=== PATIENT | female | born 1960 | race Caucasian/White ===

== ENCOUNTER → 2018-08-13 | Outpatient (CLI) | payer OTHER ==
[~2018-08-13] VITALS: Ht 170.2 cm; Wt 56.2 kg
[~2018-08-13] MED LIST: AMLODIPINE-BEN1 EAC5 PO; ASPIR 8181 MG PO; ATORVASTATIN CA40 MG PO; BUPROPION XL150 MG PO; CARDURA1 MG PO; CHLORTHALIDONE50 MG PO; CLONIDINE0.1 PO; COREG25 MG PO; HYDRALAZINE HC100 MG PO; HYDROCHLOROTHIA25 M2 PO; MEDROL4 M1 PO; NIFEDIPINE ER60 M1 PO; NORFLEX100 MG PO; PEPCID20 MG PO; PLAVIX 75 MG TA75 M1 PO; VITAFOL-OB+DHA1 EACH PO; VITAMIN B-1100 M1 PO
[2018-08-13 13:20] LABS: ABSOLUTE BASOPHILS 0.1 thou/uL (0.0-0.2); ABSOLUTE EOSINOPHILS 0.3 thou/uL (0.0-0.7); ABSOLUTE LYMPHOCYTES 1.3 thou/uL (0.8-5.3); ABSOLUTE MONOCYTES 0.9 thou/uL (0.0-1.2); ABSOLUTE NEUTROPHILS 5.7 thou/uL (1.6-8.1); BASOPHILS 0.9 %; EOSINOPHILS 3.5 %; HEMATOCRIT 35.4 % (37.0-47.0); LYMPHOCYTES 15.7 %; MCH 32.3 pg (26.0-34.0); MCHC 33.9 g/dL (28.0-37.0); MCV 95.2 fL (80.0-100.0); MONOCYTES 10.4 %; MPV 6.7 fl. (7.2-11.1); NUCLEATED RBCS 0 /100WBC; PLATELET COUNT* 363 thou/uL (150-400); POLYS 69.5 %; RBC 3.72 mil/uL (4.20-5.00); RDW-CV 13.2 % (10.5-14.5); WBC 8.2 thou/uL (4.0-11.0)
[2018-08-13 13:25] LABS: CALCIUM 9.5 mg/dL (8.5-10.1); CREATININE 1.1 mg/dL (0.6-1.3)
[2018-08-13 13:30] LABS: POTASSIUM 2.9 mmol/L (3.5-5.1)
--- NOTE | 2018-08-13 15:33 | EKG ---
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: : 1960 Requested By: Marcos Goldstein Order Number: [id number] MD: Salinas Fulton Measurements Intervals [place] Rate: 68 P: 72 [place]: 133 QRS: 71 QRSD: 106 T: 90 QT: 466 QTc: 496 Interpretive Statements Sinus rhythm Consider left atrial enlargement RSR' in V1 or V2, probably normal variant Minimal ST depression, lateral leads Borderline prolonged QT interval No previous ECG available for comparison Electronically Signed On 08-13-2018 15:33:12 CDT by Salinas Fulton [email or web address] <ELECTRONICALLY SIGNED> By: Salinas Fulton MD, FAC 08/13/18 1533 1311 1311 Salinas Fulton MD, [facility] /EPI
== END ==
LOC: M.PRE 05:34 → EDSTATUS 09:21 → M.PRE 11:33 → M.LAB 12:53 → M.TBA 12:53 → M.PRE 13:59
PROVIDERS: Surgery
DX: I65.22 Occlusion and stenosis of left carotid artery (principal); I51.7 Cardiomegaly; R91.1 Solitary pulmonary nodule

== ENCOUNTER 2018-08-28 08:23 | Inpatient (IN) | payer OTHER ==
[~2018-08-28] VITALS: Ht 170.2 cm; Wt 55.8 kg
[2018-08-28 12:49] VITALS: BP 149/70
--- NOTE | 2018-08-28 17:10 | NUR ---
PT ARRIVED FROM CAROTID PROCEDURE AROUND 1630. ASSESSMENT CHARTED. AFEBRILE. LEFT SIDE CAROTID. SITE IS INTACT. PT ON CARDENE GTT. WILL CONTINUE TO MONITOR.
[2018-08-28 19:00] VITALS: BP 120/43; BP 120/53
[2018-08-28 20:00] VITALS: BP 124/58
[2018-08-28 21:00] VITALS: BP 118/54
[2018-08-28 22:00] VITALS: BP 107/50
[2018-08-28 23:00] VITALS: BP 109/55
--- NOTE | 2018-08-28 23:06 | NUR ---
RECIEVED REPORT AND ASSUMED CARE OF PT AT 1900. PT POST OP LEFT CAROTID ENDARECTOMY. INCISION SITE WELL APROXIMATED, DERMABOND INTACT. NO BLEEDING BRUISING OR HEMATOMA NOTED. ICE PACK MAINTAINED TO SITE. HEAD OF BED MAINTAINED AT 30 DEGREES. PT GIVEN PRN VICODIN AT HS FOR REPORT OF ACHING AND SORENESS AT INCISION SITE. PT ATTEMPTED TO USE BEDPAN PRIOR TO SHIFT CHANGE THEN AGAIN X2 DEARLY IN SHIFT. PT UNABLE TO VOID AND REPORTED FEELING STRONG SENSATION TO URINATE WELL BLADDER PRESSURE. BLADDER SCAN DONE, RESULT SHOWED > 1000. TOTAL 2000 OUT PUT 45 MINUTES AFTER ZIMMERMAN INSERTION. PT VOICED IMMEDIATE RELIEF 10 TO 15 MINUTES AFTER INSERTION. CATHETER PLACED BY ANDREW SARMIENTO RN. FAMILY MEMBERS CAME INTERMITTENTLY TO SEE PT FOR BRIEF TIME PERIODS. PT RESTING WITH OU CLOSED. CALL LIGHT IN REACH, PT DEMONSTRATES PROPER USE.
[2018-08-29] VITALS (20 sets, daily range): BP systolic 102–195; BP diastolic 38–86
--- NOTE | 2018-08-29 00:54 | NUR ---
CARDENE DRIP INFUSING AT START OF SHIFT. CARDENE DISCONTINUED AT 2100 AFTER HS MEDS GIVEN. BLOOD PRESSURE AND HEART RATE WITHIN DEFINED LIMITS.
--- NOTE | 2018-08-29 01:53 | NUR ---
RIGHT RADIAL ARTERIAL LINE DISCONTINUED AT 0115. DIREST PRESSURE HELD. HEMOSTASIS ACHIEVED AT 0145. PT REPORTS DRY MOUTH, DENIES PAIN AT INCISION SITE. PT TOLERATING PO FLUIDS WITHOUT DIFFICULTY. PT ATE APPLE SAUCE TO TAKE PO POTASSIUM AT MIDNIGHT. NO NAUSEA OR VOMITING. PT ON ROOM AIR WITH O2 SAT >94%.
[2018-08-29 03:47] LABS: CALCIUM 8.3 mg/dL (8.5-10.1); CREATININE 0.9 mg/dL (0.6-1.3)
[2018-08-29 03:48] LABS: POTASSIUM 4.3 mmol/L (3.5-5.1)
--- NOTE | 2018-08-29 06:21 | NUR ---
pt progressing toward goals. blood pressure and heart rate within defined limits. cardene drip off since 2100. pt taking po food and fluids, no nausea or vomiting. pain controlled with pral meds. incision site well aproximated, no bleeding, slight bruising and slightly swollen. blake catheter discontinued at 0615.
--- NOTE | 2018-08-29 11:00 | NUR ---
SPOKE WITH PT. SHE LIVES WITH HER . HE CAN HELP HER AT HOME WHEN SHE GOES HOME. SHE SAID SHE IS FEELING ALITTLE DIZZY THIS AM. MAY POSSIBLY GO HOME LATER TODAY IF DIZZINESS RESOLVES AND IS ABLE TO VOID. SHE DOES NOT THINK SHE WILL HAVE ANY DISCHARGE NEEDS.
--- NOTE | 2018-08-29 14:32 | NUR ---
PT IS A/O X'S 4. PT TOLERATING HEART HEALTHY DIET. VSS IN AM. PT AMBULATED IN UNIT. PT SAT ON COMMODE ATTEMPTED TO VOID. SPOUSE AT BEDSIDE. IN AFTERNOON PT HAD SYSTOLIC BP OF 193. AT THIS SAME TIME PT CALLED NURSE INTO ROOM PT IN TEARS IN PAIN 10/10 IN LATERAL LEFT SIDE OF NECK AT LOCATION OF PROCEDURE. PT FACE IS FLUSHED. PT C/O OF FEELING WEAK AND LIGHTHEADED. PT HAD A HEADACHE FOR <[address] GOTTLIEB ASKED FOR IV HYDRALAZINE, RECEIVED ORDER TO GIVE PO HYDRALAZINE EARLY. PER DR GOTTLIEB RECEIVED ORDER TO CALL VASCULAR AND ASK IF WOULD LIKE HEAD CT. VASCULAR CALLED. PER VASCULAR PT NEEDS TO STAY NIGHT TO BE MONITORED. IF PT HAS A CONTINUOUS HEADACHE CALL VASCULAR AND HEAD CT MAY BE ORDERED. VASCULAR WOULD LIKE BP <150. WILL CONTINUE TO MONITOR.
--- NOTE | 2018-08-29 15:58 | NUR ---
PT HAS SAT ON BSC 3-4 TIMES THIS SHIFT. UNABLE TO VOID. PT AMBULATED. WATER TURNED ON IN ROOM. PT STILL UNABLE TO VOID. BLADDER SCANNED SHOWED 221 AROUND 10AM. PT RE-SCANNED AROUND 1400 AND BLADDER SHOWED 343 ML. PT DRINKING FLUIDS. AT 1550 PT SAT ON BSC AND VOIDED 925. PT REPORTS FEELING RELEIVED PRESSURE IN BLADDER. WILL CONTINUE TO MONITOR.
--- NOTE | 2018-08-29 19:10 | NUR ---
RECIEVED REPORT AND ASSUMED CARE OF PT. PT UP TO COMMODE WITH STANDBY ASSIST. PT HAD URINE RETENTION DURING DAY SHIFT. VOIDING WITHOUT DIFFICULTY AT THIS TIME. PT REPORTS SORENESS AT INCISION SITE, DENIES HEADACHE, DIZZYNESS OR BLURRED VISION. PT INSTRUCTED TO REPORT PAIN OR SYMPTOMS DESCRIBED IMMEDIATELY. USBAND AT BEDSIDE ASSISTING WITH CARE.
[2018-08-30] VITALS (10 sets, daily range): BP systolic 104–155; BP diastolic 34–69
[2018-08-30 02:33] LABS: ABSOLUTE BASOPHILS 0.1 thou/uL (0.0-0.2); ABSOLUTE EOSINOPHILS 0.2 thou/uL (0.0-0.7); ABSOLUTE LYMPHOCYTES 1.2 thou/uL (0.8-5.3); ABSOLUTE NEUTROPHILS 5.6 thou/uL (1.6-8.1); EOSINOPHILS 2.6 %; HEMATOCRIT 31.1 % (37.0-47.0); HEMOGLOBIN 10.2 gm/dL (12.0-15.0); LYMPHOCYTES 15.1 %; MCH 32.2 pg (26.0-34.0); MCHC 32.8 g/dL (28.0-37.0); MCV 98.2 fL (80.0-100.0); MONOCYTES 12.2 %; MPV 6.9 fl. (7.2-11.1); NUCLEATED RBCS 0 /100WBC; PLATELET COUNT* 283 thou/uL (150-400); POLYS 69.1 %; RBC 3.17 mil/uL (4.20-5.00); RDW-CV 13.3 % (10.5-14.5); WBC 8.1 thou/uL (4.0-11.0)
[2018-08-30 02:49] LABS: ALBUMIN 3.3 g/dL (3.4-5.0); CALCIUM 8.6 mg/dL (8.5-10.1); CREATININE 1.1 mg/dL (0.6-1.3); POTASSIUM 3.6 mmol/L (3.5-5.1); TOTAL BILIRUBIN 0.3 mg/dL (<0.1-1.0)
--- NOTE | 2018-08-30 16:55 | NUR ---
PT ORDERS RECEIVED AND ATTEMPTED EVAL ON 08/29/18. PT EVAL HELD BY NURSING ON 08/29/18. PT DISCHARGED PRIOR TO PT ABLE TO COMPLETE EVALUATION.
--- NOTE | 2018-09-03 08:09 | PATH ---
[address] [address] PATHOLOGY RPT PROCEDURE Name: TRUE CASAS I Room: [address] IN .R.#: [id number] Admission: 08/28/18 Date of : 56 Discharge: 08/30/18 Report #: [id number] Path Case #: [id number] [facility] Accession Number: [id number] . 01 Material submitted: . LEFT CAROTID PLAQUE . 01 Clinical history: . Left carotid stenosis . 02 Diagnosis: Left carotid plaque: - Calcified atheromatous plaque. (MAP:[facility]; 08/30/2018) QMS/08/30/2018 . 02 Electronically signed: . Ze Skaggs MD, Pathologist NPI- [id number] . 01 Gross description: . Received in formalin labeled "True Casas, left carotid plaque," is a roughly tubular segment of orange-porter rubbery tissue measuring 3.3 x 1.0 x 1.0 cm in greatest dimensions. Sectioning reveals partially calcified cut surfaces and deposits of granular, brown-black material. The specimen is submitted representatively in cassette A1, following decalcification. ([facility]; 08/29/2018) XDC/XDC . 02 Pathologist provided ICD-10: I65.22 . 02 CPT . 903442, 307814 Specimen Comment: A courtesy copy of this report has been sent to Specimen Comment: [phone], , . Specimen Comment: Report sent to ,DR RICE / DR SALEH Specimen Comment: A duplicate report has been generated due to demographic updates. Performed at: 01 [facility] [address], [place], [place] [id number] MD Thiago Erazo MD Phone: [phone] Performed at: 02 [facility] [address], [place], [place] [address] MD Nigel Osorio MD Phone: [phone]
--- NOTE | 2018-09-03 12:01 | OP ---
[facility] [address] [place] [address] OPERATIVE REPORT Name: TRUE CASAS I Room: [address] IN .R.#: [id number] Admission: 08/28/18 Attend Phys: Kathy Skelton Discharge: 08/30/18 Date of : 56 Report #: [id number] THIS REPORT FOR: //name// CC: Marcos Quinones DATE OF SERVICE: 08/28/2018 PREOPERATIVE DIAGNOSIS: Asymptomatic high-grade left carotid artery stenosis. POSTOPERATIVE DIAGNOSIS: Asymptomatic high-grade left carotid artery stenosis. OPERATION: 1. Left carotid endarterectomy with bovine pericardial patch angioplasty. 2. Completion intraoperative duplex. SURGEON: Marcos Goldstein DO HOUSE SERVANT: , ORT. ANESTHESIA: General. ESTIMATED BLOOD LOSS: 250 mL. FLUIDS: A liter of crystalloid. URINE OUTPUT: None. SPECIMENS: Left carotid plaque. IMPLANTS: A 0.8 x 8 bovine pericardial patch to left carotid artery. FINDINGS: She had a heavily calcified, approximately 90% stenosis of the left carotid artery. This endarterectomized well. Completion intraoperative duplex demonstrated no intraluminal defects, good flow through the external and continuous diastolic flow through the internal carotid artery. CLINICAL HISTORY: The patient is a 58-year-old woman with a known carotid artery disease, high-grade left carotid stenosis. She is brought in today for elective endarterectomy for stroke risk reduction. DETAILS OF PROCEDURE: After informed consent was obtained, the patient was taken to the operating room and placed on the OR bed in supine position. She was administered general anesthesia by the anesthesia team. Left neck was prepped and draped in the usual sterile fashion. Full timeout was performed [place] [id number] OPERATIVE REPORT Name: TRUE CASAS I Room: [address] IN [facility].#: [id number] Admission: 08/28/18 Attend Phys: Kathy Skelton Discharge: 08/30/18 Date of : 56 Report #: [id number] identifying correct patient and procedure. Next, a longitudinal incision made along the anterior border of the left sternocleidomastoid. Dissection was carried down through skin and subcutaneous tissues creating platysma flaps. The facial vein was identified, was ligated between 2-0 silk ties and divided. The carotid sheath was entered. The common carotid artery was circumferentially mobilized and controlled with umbilical tape and Rumel tourniquet. I then dissected out the external carotid and superior thyroid arteries and controlled with Silastic vessel loops in Hilton fashion. I then dissected out the distal internal carotid artery and controlled with Silastic vessel loop. Administered 7000 units of intravenous heparin and this allowed to circulate for 3 minutes and then sequentially clamped the internal followed by the external common carotid arteries. We then made a longitudinal arteriotomy, extending with Hilton scissors on the normal common and internal carotid artery. I placed a 10-[place] shunt in standard fashion. Doppler interrogation confirmed flow through the shunt. I then performed a standard endarterectomy with eversion endarterectomy of the external carotid artery, freed the artery of all intimal debris. Flushed with heparinized saline. I then performed a patch angioplasty with bovine pericardial patch and running 6-0 Prolene suture. Prior to completion of the suture line, the shunt was removed and the carotid was reclamped, allowed to fore and backbleed and flushed. I completed the suture line, restored flow first up the external carotid artery and after several heartbeats to the internal carotid artery. I then performed completion intraoperative duplex, which again demonstrated no intraluminal defects, good flow through the external and continuous diastolic flow through the internal carotid artery. At this point, I then partially reversed the heparin with 50 mg protamine, irrigated the wound once hemostasis was ensured with antibiotic solution and closed the wounds in layers with 2-0 and 3-0 Vicryl, 4-0 Monocryl on the skin. Local anesthetic was infiltrated. Dermabond was applied. All sponge, sharp and instrument counts reported as correct x 2. She was extubated in the operating room, neurologically intact in upper and lower extremities appropriately to command. She was then transferred to recovery room in stable condition. <ELECTRONICALLY SIGNED> By: Marcos Goldstein DO 09/03/18 1201 1517 [id number] Goldstein DO /nt
== END 2018-08-30 10:15 | disposition home or self-care (01) | DRG 39 ==
LOC: M.PRE 08:23 → M.TBA 12:10 → M.ICU 12:10 → M.PRE 12:47 → M.ICU 16:35
PROVIDERS: Internal Medicine; ADMIT Internal Medicine
PROC: 03UL0KZ Supplement Left Internal Carotid Artery with Nonautologous Tissue Substitute, Open Approach (ICD-10-PCS; principal; 2018-08-28)
PROC: 03CL0ZZ Extirpation of Matter from Left Internal Carotid Artery, Open Approach (ICD-10-PCS; principal; 2018-08-28)
DX: I65.22 Occlusion and stenosis of left carotid artery (principal); K21.9 Gastro-esophageal reflux disease without esophagitis; E78.5 Hyperlipidemia, unspecified; I10 Essential (primary) hypertension; F17.210 Nicotine dependence, cigarettes, uncomplicated; E86.0 Dehydration; R33.9 Retention of urine, unspecified; Z79.82 Long term (current) use of aspirin; Z79.899 Other long term (current) drug therapy; Z88.8 Allergy status to other drugs, medicaments and biological substances; Z28.21 Immunization not carried out because of patient refusal

== ENCOUNTER → 2018-09-11 | Outpatient (CLI) | payer OTHER ==
[2018-09-11 09:25] LABS: CREATININE 1.1 mg/dL (0.6-1.3)
== END ==
LOC: M.LAB 09-02 10:00 → M.CT 09-02 10:00 → M.LAB 09:00 → M.CT 11:00
PROVIDERS: Nurse Practitioner
DX: I70.1 Atherosclerosis of renal artery (principal); J43.2 Centrilobular emphysema; R93.89 Abnormal findings on diagnostic imaging of other specified body structures; I70.213 Atherosclerosis of native arteries of extremities with intermittent claudication, bilateral legs

== ENCOUNTER 2019-08-20 18:34 | Emergency (ER) | payer OTHER ==
[~2019-08-20] VITALS: Ht 170.2 cm; Wt 55.3 kg
[2019-08-20] MEDS ORDERED: KLOR-CON M2020 MEQ PO (18:47)
[2019-08-20] MEDS ORDERED: SUPER THERAVIT1 EACH PO (18:47)
[2019-08-20 19:12] LABS: HEMOGLOBIN 11.7 gm/dL (12.0-15.0); MCHC 34.3 g/dL (28.0-37.0); MCV 93.4 fL (80.0-100.0); NUCLEATED RBCS 0 /100WBC; PLATELET COUNT* 422 thou/uL (150-400); RBC 3.65 mil/uL (4.20-5.00); RDW-CV 15.2 % (10.5-14.5); WBC 14.3 thou/uL (4.0-11.0)
[2019-08-20 19:23] LABS: ANION GAP 11 mmol/L (7-16); BUN 23 mg/dL (7-18); CALCIUM 9.7 mg/dL (8.5-10.1); CHLORIDE 94 mmol/L (98-107); CO2 27 mmol/L (21-32); CREATININE 1.2 mg/dL (0.6-1.3); GLUCOSE 118 mg/dL (70-99); POTASSIUM 3.6 mmol/L (3.5-5.1); SODIUM 132 mmol/L (136-145)
[2019-08-20 19:25] LABS: APTT 46.5 Seconds (25.0-31.3)
[2019-08-20 19:36] LABS: ALBUMIN 3.2 g/dL (3.4-5.0); ALKALINE PHOSPHATASE 101 U/L (46-116); CK-MB MASS < 0.5 ng/mL (<0.5-3.6); LIPASE 87 U/L (73-393); MAGNESIUM 1.7 mg/dL (1.8-2.4); NT-PRO BRAIN NAT PEPTIDE 750 pg/mL (<300); SGOT 14 U/L (15-37); SGPT 16 U/L (30-65); TOTAL BILIRUBIN 0.5 mg/dL (<0.1-1.0); TOTAL PROTEIN 7.5 g/dL (6.4-8.2)
[2019-08-20 20:06] LABS: ABSOLUTE BASOPHILS 0.3 thou/uL (0.0-0.2); ABSOLUTE LYMPHOCYTES 1.6 thou/uL (0.8-5.3); ABSOLUTE MONOCYTES 0.6 thou/uL (0.0-1.2); ABSOLUTE NEUTROPHILS 11.9 thou/uL (1.6-8.1); ATYPICAL LYMPHS 2 %
[2019-08-20 20:07] LABS: HYPOCHROMASIA 1+; POIKILOCYTOSIS 1+
[2019-08-20 20:08] LABS: PLATELET ESTIMATE INCREASED
[2019-08-20] MEDS ORDERED: TRAMADOL 50 MG50 MG PO (21:59)
[2019-08-20 22:43] VITALS: BP 146/70
--- NOTE | 2019-08-21 14:29 | EKG ---
[place] [address] ELECTROCARDIOGRAM REPORT Name: TRUE CASAS I Room: [facility]#: [id number] Admission: 08/20/19 Attend Phys: Discharge: 08/20/19 Date of : 56 Report #: [id number] THIS REPORT FOR: //name// [facility] ED Test Date: 2019-08-20 Test Time: 18:42:18 Pat Name: TRUE CASAS Department: Room: Gender: F Transmission Systems Operator: ROSALIO : 1960 Requested By: Javier Chapin Order Number: [id number] MD: Ze Hammond Measurements Intervals [place] Rate: 94 P: 57 [place]: 130 QRS: 58 QRSD: 96 T: 115 QT: 356 QTc: 446 Interpretive Statements Sinus rhythm Nonspecific T abnormalities, lateral leads Compared to ECG 08/13/2018 13:11:58 T-wave abnormality now present ST (T wave) deviation no longer present Electronically Signed On 08-21-2019 14:29:36 CDT by Ze Hammond [email or web address] <ELECTRONICALLY SIGNED> By: Ze Hammond MD, FACC 08/21/19 1429 1842 184 Ze Hammond MD, FAC /EPI
== END 2019-08-20 22:43 | disposition home or self-care (01) ==
LOC: M.ERS 18:34
PROVIDERS: Family Medicine
DX: R07.89 Other chest pain (principal); K21.9 Gastro-esophageal reflux disease without esophagitis; E78.5 Hyperlipidemia, unspecified; I10 Essential (primary) hypertension; Z98.51 Tubal ligation status

== ENCOUNTER → 2021-07-04 | Outpatient (CLI) | payer OTHER ==
[~2021-07-04] MED LIST changes: +KLOR-CON M2020 MEQ PO; +SUPER THERAVIT1 EACH PO; +TRAMADOL 50 MG50 MG PO
== END ==
LOC: M.CT 07:31
PROVIDERS: ATTEND Internal Medicine
DX: J43.8 Other emphysema (principal); J98.4 Other disorders of lung; K44.9 Diaphragmatic hernia without obstruction or gangrene; N28.1 Cyst of kidney, acquired; N26.1 Atrophy of kidney (terminal); M43.8X4 Other specified deforming dorsopathies, thoracic region; I31.3 Pericardial effusion (noninflammatory)